=== PATIENT | female | born 1990 | race American Indian/Alaskan Native ===

== ENCOUNTER 2017-12-11 17:46 | Emergency (ER) | payer MEDICAID ==
[2017-12-11 17:48] VITALS: BMI 32.3
[2017-12-11 18:01] VITALS: BP 136/81; PULSE 68; TEMP 97.6; O2SAT 99
--- NOTE | 2017-12-11 19:14 | C.PDOC ---
History Of Present Illness 27yo female, with history of HIV with an unknown CD4 count and an undetectable viral load (last evaluated in September), presents to ER with complaints of sore throat and nasal congestion. She denies any fever, headache, chest pain, sob, abdominal pain, or difficulty breathing or swallowing. She also reports that her partner recently informed her that he is positive for chlamydia and she is requesting to be treated for that. Patient denies any vaginal discharge, pelvic pain or bleeding. Time Seen by Provider: 12/11/17 18:35 Chief Complaint (Nursing): ENT Problem History Per: Patient History/Exam Limitations: no limitations Current Symptoms Are (Timing): Still Present Past Medical History Reviewed: Historical Data, Nursing Documentation, Vital Signs Vital Signs: Last Vital Signs Temp 97.6 F 12/11/17 17:57 Pulse 68 12/11/17 17:57 Resp 20 12/11/17 20:41 BP 136/81 12/11/17 17:57 Pulse Ox 99 12/11/17 19:48 - Medical History PMH: HIV (diagnosed 2017) Denies: Depression Surgical History: No Surg Hx Family History: States: No Known Family Hx - Social History Hx Tobacco Use: Yes Hx Alcohol Use: No Hx Substance Use: Yes (MARiJUANA) - Immunization History Hx Tetanus Toxoid Vaccination: No Hx Influenza Vaccination: No Hx Pneumococcal Vaccination: No Review Of Systems Except As Marked, All Systems Reviewed And Found Negative. Constitutional: Negative for: Fever, Chills ENT: Positive for: Nose Congestion, Throat Pain Genitourinary: Negative for: Vaginal Discharge, Pelvic Pain Physical Exam - Physical Exam Appears: Well, Non-toxic, No Acute Distress Skin: Normal Color, Warm, Dry Head: Atraumatic, Normacephalic Eye(s): bilateral: Normal Inspection, EOMI Ear(s): Bilateral: Normal Nose: Other ((+) swenlarged nasal turbinates bilaterally) Oral Mucosa: Moist Throat: Normal, Erythema (mild tonsilar erythema and swelling), No Exudate, Other (uvula midline) Neck: Normal ROM, Supple Chest: Symmetrical Cardiovascular: Rhythm Regular Respiratory: Normal Breath Sounds, No Wheezing Gastrointestinal/Abdominal: Normal Exam, Soft, No Tenderness Back: No CVA Tenderness, No Vertebral Tenderness Extremity: Normal ROM Neurological/Psych: Oriented x3, Normal Speech, Normal Cognition ED Course And Treatment O2 Sat by Pulse Oximetry: 99 (RA) Pulse Ox Interpretation: Normal Progress Note: Patient to be given prophylactic treatment for chlamydia; Chlamydia, GC RNA/TMA cultures sent. Patient given 1000mg Zithromax PO and Rocephin. (pt is not allergic to amox- notes she gets yeast infection, diflucan given ). Patient informed that cultures will take over 5 days and she will be informed with results. Case discussed with Dr Tucker, agreed upon plan and treatment. Disposition - Disposition Disposition: HOME/ ROUTINE Disposition Time: 19:23 Condition: STABLE Additional Instructions: Follow up with your primary medical doctor or clinic in 2-5 days for further evaluation. Take medications as prescribed. Return to the emergency department at any time if symptoms persist or worsen. Prescriptions: Fluticasone Nasal [Flonase] 1 actuation NS DAILY #1 spr Guaifen/Dextromethorphan/PE [Mucinex Fast-Max Congest-Cough] 1 each PO Q6 #20 tablet Instructions: Sore Throat, Adult (DC) Forms: Work Excuse - Clinical Impression Clinical Impression: URI (upper respiratory infection), Exposure to STD - PA / QUALITY CHECKER / Resident Statement MD/DO has reviewed & agrees with the documentation as recorded. - Scribe Statement The provider has reviewed the documentation as recorded by the Scribe (Loren Adler) Provider Attestation: All medical record entries made by the Scribe were at my direction and personally dictated by me. I have reviewed the chart and agree that the record accurately reflects my personal performance of the history, physical exam, medical decision making, and the department course for this patient. I have also personally directed, reviewed, and agree with the discharge instructions and disposition.
[2017-12-11 19:38] LABS: HCG,QUALITATIVE URINE NEGATIVE (NEGATIVE)
[2017-12-11 19:39] LABS: SQUAMOUS EPITHIAL 19 /hpf (0-5); URINE BILIRUBIN NEGATIVE (NEGATIVE); URINE BLOOD NEGATIVE (NEGATIVE); URINE CLARITY Hazy (Clear); URINE COLOR Yellow (YELLOW); URINE GLUCOSE (UA) NORMAL (Normal); URINE LEUKOCYTE ESTERASE TRACE Leu/uL (Negative); URINE PROTEIN 1+ mg/dL (NEGATIVE)
[2017-12-11] MEDS ORDERED: cefTRIAXone (Rocephin) 250 mg Inj IM STA (19:45)
[2017-12-11 20:41] VITALS: RESP 20
== END 2017-12-11 20:40 | disposition home or self-care (01) ==
LOC: C.ER 17:46
DX: J06.9 Acute upper respiratory infection, unspecified (principal); Z20.2 Contact with and (suspected) exposure to infections with a predominantly sexual mode of transmission; F17.210 Nicotine dependence, cigarettes, uncomplicated
CPT/HCPCS: 81001; 84703; 87086; 87491; 87591; 96372; 99283; J0696

== ENCOUNTER 2017-12-28 08:14 | Emergency (ER) | payer OTHER, MEDICAID ==
[2017-12-28 08:15] VITALS: BMI 32.3
[2017-12-28 08:51] VITALS: RESP 16; TEMP 98.1; O2SAT 100
[2017-12-28 09:13] LABS: SQUAMOUS EPITHIAL 3 /hpf (0-5); URINE BACTERIA RARE (<OCC); URINE BILIRUBIN NEGATIVE (NEGATIVE); URINE BLOOD 1+ (NEGATIVE); URINE CLARITY Hazy (Clear); URINE COLOR Yellow (YELLOW); URINE GLUCOSE (UA) NORMAL (Normal); URINE LEUKOCYTE ESTERASE NEG Leu/uL (Negative); URINE PROTEIN 1+ mg/dL (NEGATIVE)
--- NOTE | 2017-12-28 10:31 | CT ---
PROCEDURE: CT HEAD WITHOUT CONTRAST. HISTORY: injury COMPARISON: None available. TECHNIQUE: Axial computed tomography images were obtained through the head/brain without intravenous contrast. Radiation dose: Total exam DLP = 751.29 mGy-cm. This CT exam was performed using one or more of the following dose reduction techniques: Automated exposure control, adjustment of the mA and/or kV according to patient size, and/or use of iterative reconstruction technique. FINDINGS: HEMORRHAGE: No intracranial hemorrhage. BRAIN: No mass effect or edema. No atrophy or chronic microvascular ischemic changes. Globular calcifications seen along the anterior falx cerebri, likely dystrophic. Cannot rule out small meningioma. VENTRICLES: Unremarkable. No hydrocephalus. CALVARIUM: Unremarkable. PARANASAL SINUSES: Unremarkable as visualized. No significant inflammatory changes. MASTOID AIR CELLS: Unremarkable as visualized. No inflammatory changes. OTHER FINDINGS: None. IMPRESSION: No intracranial hemorrhage. Incidentally noted globular calcification along the anterior falx cerebrum, likely dystrophic. Cannot rule out small meningioma.
--- NOTE | 2017-12-28 10:49 | C.PDOC ---
History Of Present Illness 27 year old female presents to the ED for evaluation after she sustained a head injury at around 0400 today while she was at work. Patient states that a metal door accidentally hit the top of her head. Patient notes she felt dizzy at the time, but symptoms resolved over time. Patient denies loss of consciousness, syncope, headache, vision change, nausea, vomiting, focal deficits, neck pain, CP, denies any other active complaints. Ambulate to Ed for evaluation, not in any apparent distress. - HPI Time Seen by Provider: 12/28/17 08:23 Chief Complaint (Nursing): Trauma History Per: Patient History/Exam Limitations: no limitations Onset/Duration Of Symptoms: Hrs Injury Occurred (Timing): Today @ (0400) Additional History Per: Patient Past Medical History Reviewed: Historical Data, Nursing Documentation, Vital Signs Vital Signs: Last Vital Signs Temp 98.1 F 12/28/17 10:49 Pulse 66 12/28/17 10:49 Resp 16 12/28/17 10:49 BP 140/73 12/28/17 10:49 Pulse Ox 100 12/28/17 11:22 - Medical History PMH: HIV (diagnosed 2017) Denies: Depression Surgical History: No Surg Hx Family History: States: Unknown Family Hx - Social History Hx Tobacco Use: Yes Hx Alcohol Use: No Hx Substance Use: Yes (MARiJUANA) - Immunization History Hx Tetanus Toxoid Vaccination: No Hx Influenza Vaccination: No Hx Pneumococcal Vaccination: No Review Of Systems Except As Marked, All Systems Reviewed And Found Negative. Constitutional: Negative for: Fever, Chills Eyes: Negative for: Vision Change, Redness Cardiovascular: Negative for: Chest Pain, Palpitations, Edema, Light Headedness Respiratory: Negative for: Shortness of Breath, Wheezing Gastrointestinal: Negative for: Nausea, Vomiting Genitourinary: Negative for: Dysuria, Frequency, Incontinence Musculoskeletal: Negative for: Neck Pain, Back Pain Skin: Negative for: Lesions, Bruising Neurological: Positive for: Headache. Negative for: Weakness, Numbness, Altered Mental Status, Dizziness Physical Exam - Physical Exam Appears: Well, Non-toxic, No Acute Distress Skin: Normal Color, Warm, Dry, No Rash Head: Normacephalic, Tenderness (RIGHT PARIETAL SCALP. NO EDEMA, NO ERYTHEMA, NO OPEN WOUND, NO PALPABLE DEFORMITY.) Eye(s): bilateral: PERRL Nose: No Flaring, No Discharge Oral Mucosa: Moist Tongue: Normal Appearing Lips: Normal Appearing Throat: No Erythema, No Drooling Neck: Trachea Midline, No Midline Cervical Tenderness, No Paracervical Tenderness, No Step Off Deformity, Supple Chest: Symmetrical Cardiovascular: Rhythm Regular Respiratory: No Decreased Breath Sounds, No Accessory Muscle Use, No Stridor, No Wheezing Gastrointestinal/Abdominal: Soft, No Tenderness, No Distention, No Guarding Back: No Vertebral Tenderness, No Paraspinal Tenderness Extremity: Normal ROM, No Deformity, No Swelling Neurological/Psych: Oriented x3, Normal Speech, Normal Motor, Normal Sensation, Normal Reflexes ED Course And Treatment O2 Sat by Pulse Oximetry: 100 (on RA ) Pulse Ox Interpretation: Normal - CT Scan/US CT head w/o cintrast Other Rad Studies (CT/US): Radiology Report Reviewed CT/US Interpretation: Creator : Forrest Cuevas MD. Dictator : Forrest Cuevas MD. Computer Technology Instructor : Polysomnographer : Forrest Cuevas MD. Approver2 : Report Date : 12/28/2017 10:30:11. My Comment : . PROCEDURE: CT HEAD WITHOUT CONTRAST. HISTORY: injury. COMPARISON: None available. TECHNIQUE: Axial computed tomography images were obtained through the head/ brain without intravenous contrast. Radiation dose: Total exam DLP = 751.29 mGy-cm. This CT exam was performed using one or more of the following dose reduction techniques: Automated exposure control, adjustment of the mA and/or kV according to patient size, and/or use of iterative reconstruction technique. FINDINGS: HEMORRHAGE: No intracranial hemorrhage. BRAIN: No mass effect or edema. No atrophy or chronic microvascular ischemic changes. Globular calcifications seen along the anterior falx cerebri, likely dystrophic. Cannot rule out small meningioma. VENTRICLES: Unremarkable. No hydrocephalus. CALVARIUM: Unremarkable. PARANASAL SINUSES: Unremarkable as visualized. No significant inflammatory changes. MASTOID AIR CELLS: Unremarkable as visualized. No inflammatory changes. OTHER FINDINGS: None. IMPRESSION: No intracranial hemorrhage. Incidentally noted globular calcification along the anterior falx cerebrum, likely dystrophic. Cannot rule out small meningioma. Progress Note: CT Head and UA ordered and reviewed. Tylenol PO, Ultram PO, and Zofran PO administered. On re-eavluation, pt is afebrile, hemodynamicaly stable. Non-toxic. AMbulatory in ED with stable gait, tolerate Po well in ED. PusleOx 100% RA. Head: NC, mild tenderness over Right parietal scalp, no edema , no palpable deformity. ENT: no acute findings. Neck: Supple, (-) midline tenderness. ABd: benign. FAROM of B/L UEs and LEs. neuorlogicaly intact. CT head results review and discussed with patient, no acute findings relaited to injury. Pt advised OBS 48 hrs for any sign of hea dinjury-return to ED immediately if any new changes. ref. to f/u with PMD, MRI of brain for further eval. Pt understand and agrees with discharges. Disposition Counseled Patient/Family Regarding: Studies Performed, Diagnosis, Need For Followup, Rx Given - Disposition Referrals: [facility] [Outside] Disposition: HOME/ ROUTINE Disposition Time: 10:49 Condition: STABLE Additional Instructions: OBSERVE 48 HRS FOR ANY SIGN OF HEAD INJURY- INTRACTABLE HEADACHE, VISUAL CHANGES , VOMITING OR ANY OTHER NEW CHANGES-RETURN TO ED IMMEDIATELY FOR RE-EVALUATION. TYLENOL NEED FOR HEADACHE FOLLOW UP WITH PMD IN 1-2 DAYS FOR RE-EVALUATION AND FOR FURTHER MRI OF HEAD. Instructions: Closed Head Injury Forms: [facility] (Tajik), Work Excuse - Clinical Impression Clinical Impression: Head injury - Scribe Statement The provider has reviewed the documentation as recorded by the Scribe (Hansa Barajas) All medical record entries made by the Scribe were at my direction and personally dictated by me. I have reviewed the chart and agree that the record accurately reflects my personal performance of the history, physical exam, medical decision making, and the department course for this patient. I have also personally directed, reviewed, and agree with the discharge instructions and disposition.
[2017-12-28 10:51] VITALS: BP 140/73; PULSE 66
== END 2017-12-28 11:30 | disposition home or self-care (01) ==
LOC: C.ER 08:14
DX: S09.90XA Unspecified injury of head, initial encounter (principal); W22.8XXA Striking against or struck by other objects, initial encounter; Y92.89 Other specified places as the place of occurrence of the external cause; Y99.8 Other external cause status

== ENCOUNTER 2018-01-01 09:31 | Emergency (ER) | payer OTHER, MEDICAID ==
[2018-01-01 09:41] VITALS: BP 145/85; PULSE 61; RESP 18; TEMP 97.9; O2SAT 100; BMI 26.2
--- NOTE | 2018-01-01 10:49 | RAD ---
PROCEDURE: Radiographs of the right humerus. HISTORY: r/o fx COMPARISON: None. FINDINGS: BONES: Normal. No fracture or focal lesion. SOFT TISSUES: Normal. OTHER FINDINGS: None. IMPRESSION: Normal radiographs of right humerus.
--- NOTE | 2018-01-01 10:49 | RAD ---
PROCEDURE: Radiographs of the Right Shoulder HISTORY: r/o fx COMPARISON: No prior. FINDINGS: BONES: Normal. No fracture. JOINTS: Normal. Glenohumeral and acromioclavicular joints preserved. No osteoarthritis. SOFT TISSUES: Normal. OTHER FINDINGS: None. IMPRESSION: Normal radiographs of the right shoulder.
--- NOTE | 2018-01-01 12:01 | C.PDOC ---
History Of Present Illness 27 y/o female presents to ED with complaints of right shoulder and right arm pain for 4 days after getting hit in head with metal. Patient was evaluated at ED same day for headache and discharged. Patient has not followed up with PMD and states she does not remember getting hit on arm or shoulder but reports shoulder to be "swollen". Patient gives no further history. Chief Complaint (Nursing): Upper Extremity Problem/Injury History Per: Patient History/Exam Limitations: no limitations Onset/Duration Of Symptoms: Days Current Symptoms Are (Timing): Still Present Past Medical History Reviewed: Historical Data, Nursing Documentation, Vital Signs Vital Signs: Last Vital Signs Temp 97.9 F 01/01/18 09:41 Pulse 61 01/01/18 09:41 Resp 18 01/01/18 09:41 BP 145/85 01/01/18 09:41 Pulse Ox 100 01/01/18 12:08 - Medical History PMH: HIV (diagnosed 2017) Surgical History: No Surg Hx Family History: States: No Known Family Hx - Social History Hx Tobacco Use: Yes Hx Alcohol Use: No Hx Substance Use: Yes (MARiJUANA) - Immunization History Hx Tetanus Toxoid Vaccination: No Hx Influenza Vaccination: No Hx Pneumococcal Vaccination: No Review Of Systems Cardiovascular: Negative for: Chest Pain Respiratory: Negative for: Shortness of Breath Musculoskeletal: Positive for: Shoulder Pain, Arm Pain Skin: Negative for: Rash Neurological: Negative for: Weakness, Numbness Physical Exam - Physical Exam Appears: Non-toxic, No Acute Distress, Other (Using her cellphone ) Skin: Warm, Dry, No Rash Head: Atraumatic, Normacephalic Eye(s): bilateral: Normal Inspection Oral Mucosa: Moist Neck: Normal ROM, Supple Cardiovascular: Rhythm Regular Respiratory: Normal Breath Sounds, No Rales, No Rhonchi, No Wheezing Extremity: Normal ROM, Capillary Refill (<2 seconds), No Deformity, No Swelling Pulses: Left Radial: Normal, Right Radial: Normal Neurological/Psych: Oriented x3, Normal Motor, Normal Sensation ED Course And Treatment O2 Sat by Pulse Oximetry: 100 (RA) Pulse Ox Interpretation: Normal Progress Note: Xray of right arm and shoudler was negative. Patient discharged with advised follow up with PMD in 1-2 days. Patient agrees with plan of discharge Disposition - Disposition Referrals: [facility], [Non-Staff] - Disposition: HOME/ ROUTINE Disposition Time: 10:50 Condition: GOOD Additional Instructions: Thank you for letting us take care of you today. The emergency medical care you received today was directed at your acute symptoms. If you were prescribed any medication, please fill it and take as directed. It may take several days for your symptoms to resolve. Return to the Emergency Department if your symptoms worsen, do not improve, or if you have any other problems. Please contact your doctor or call one of the physicians/clinics you have been referred to that are listed on the Patient Visit Information form that is included in your discharge packet. Bring any paperwork you were given at discharge with you along with any medications you are taking to your follow up visit. Our treatment cannot replace ongoing medical care by a primary care provider (PCP) outside of the emergency department. Thank you for allowing the [facility] team to be part of your care today. Follow up with your primary care doctor in 2-3 days for re-evaluation and further management. Prescriptions: Lidocaine 5% [Lidoderm] 1 ea TD DAILY #7 patch Instructions: Shoulder Sprain (DC), Shoulder Pain (DC) Forms: Work Excuse - Clinical Impression Clinical Impression: Shoulder pain - Scribe Statement The provider has reviewed the documentation as recorded by the Allenibe Veda Barba All medical record entries made by the Allenibe were at my direction and personally dictated by me. I have reviewed the chart and agree that the record accurately reflects my personal performance of the history, physical exam, medical decision making, and the department course for this patient. I have also personally directed, reviewed, and agree with the discharge instructions and disposition.
== END 2018-01-01 11:26 | disposition home or self-care (01) ==
LOC: C.ER 09:31
DX: M25.511 Pain in right shoulder (principal)